=== PATIENT | male | born 1960 | race Caucasian/White ===

== ENCOUNTER 2017-05-28 23:08 | Emergency (ER) | payer OTHER ==
[~2017-05-28] VITALS: Ht 180.3 cm; Wt 101.6 kg
[2017-05-28 23:15] VITALS: TEMP 36.3; Ht 180.3 cm; Wt 101.6 kg
[2017-05-28] MEDS ORDERED: XYLOCAINE 1%/SOD BICARB 20 ML VIAL INFIL ONE (23:45)
[2017-05-29 01:13] VITALS: BP 147/96; PULSE 95; O2SAT 97
--- NOTE | 2017-05-29 02:26 | EMERGENCY ROOM VISIT NOTE ---
History Report prepared by Oswaldo: Henri Lowe Under the Supervision of: Dr. Laron Zarate M.D. First contact with patient: 23:32 Chief Complaint: LACERATION/CUT (NON-SUTURE) Stated Complaint: FELL, HIT HEAD, LACERATION- Nursing Triage Summary: Patient reports that he slipped and fell at work hitting the right side of his head. Denies LOC, notes some lightheadedness and shakiness. History of Present Illness The patient is a 56 year old male who presents to the Emergency Room with complaints of a sudden laceration that occurred prior to arrival. 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 He states that he hit his head, but is unsure what he hit his head on. The patient states that he has a mild headache and laceration from the fall. He reports that he does not know when his last tetanus shot was but thinks he is up -to-date. He admits that he had hypertension until his hip replacement and once his pain resolved his blood pressure improved. The patient denies LOC, neck pain, hip pain, back pain, abdominal pain, hypertension, numbness or weakness in his arms or legs. Source of History: patient Onset: prior to arrival Position: head Symptom Intensity: 2/10 Quality: other (laceration) Timing: other (sudden) Associated Symptoms: No LOC, No neck pain, No abdominal pain, No back pain, No weakness, No numbness Review of Systems See HPI for pertinent positives & negatives. A total of 10 systems reviewed and were otherwise negative. Past Medical & Surgical Medical Problems: (1) Alcohol Abuse-Continuous (2) Hypertension Nos Surgical Problems: (1) History of total hip arthroplasty Family History Cancer Hypertension Social History Smoking Status: Current Every Day Smoker Alcohol Use: occasionally Drug Use: none Occupation Status: employed Current/Historical Medications No Active Prescriptions or Reported Meds Allergies Coded Allergies: No Known Allergies (Verified , 05/28/17) Physical Exam Vital Signs Date Time Temp Pulse Resp B/P (MAP) Pulse Ox O2 Delivery O2 Flow Rate FiO2 05/29/17 01:13 95 18 147/96 97 05/28/17 23:15 36.3 103 18 149/100 95 Room Air Physical Exam Constitutional: Vital signs reviewed. Eyes: Pupils are equal round reactive to light. Conjunctiva are noninjected. ENT: Pharynx is clear without erythema or exudate. Mucous membranes are moist. Neck supple without meningeal signs. Respiratory: Clear to auscultation bilaterally. Breath sounds are equal bilaterally. Cardiovascular: Regular rate and rhythm. No rubs or gallops. GI: Soft, nondistended and nontender. Bowel sounds are present. Musculoskeletal: No peripheral edema. No lower extremity tenderness. No midline tenderness to cervical, thoracic, or lumbar spine. Integumentary: No cyanosis. Soft tissue swelling and 2 cm laceration to left scalp. Large skin lesion to frontal scalp. Neurological: The patient is awake and alert. No focal deficits. Psychiatric: Normal affect. Medical Decision & Procedures ER Provider Diagnostic Interpretation: CT results as stated below per my review and radiologist interpretation. CT HEAD: No priors. Scalp injury. Though history states right sided trauma, there is a left scalp hematoma noted. No ICH, mass effect, or skull fracture. Radiologist: Toi Chicas Procedure Location: Scalp Total length: 2 cm Complexity: Simple Verbal consent was obtained. A time out was taken and the correct patient and site identified. The target area was anesthetized with 3 ml of 1% lidocaine without epinephrine. Copious irrigation was performed using saline. The hair cleared from the wound, and a sterile field set. The wound was explored for foreign bodies and none found. Debridement was not performed. The wound edges were approximated using 3 surgical stephen in the standard fashion. Hemostasis and excellent approximation was achieved. No complications and the patient tolerated the procedure well. ED Course 2332: The patient was evaluated in room C09. A complete history and physical exam was performed. 2345: Ordered Lidocaine HCl 20 ml INFIL. 0048: I performed a laceration repair. See procedure notes for further detail. The patient declined a tetanus shot. He was told to follow up with his doctor regarding this. He was also told to see a stunner animal regarding the large skin lesion on his head. 0059: I reevaluated the patient refuses to wait for CT scan results. He requests that we call him if he has abnormalities. I discussed the treatment plan and he agrees. The patient was discharged home. Medical Decision This is a 56-year-old male presents status post head injury. Differential diagnosis includes concussion, contusion, skull fracture, intracranial hemorrhage, hematoma. I did perform a limited focused review of portions of the patient's old chart on the electronic medical record. The patient has had no recent pertinent visits to this hospital. I did evaluate the patient as noted above. I did order a CT of the head. I did review the images myself as well as the radiology report as described above. I did repair the patient's laceration as described above. He was given head injury precautions. He declined tetanus immunization. The patient also did not wish to wait for the radiology reading for the CAT scan and told us to call him if there was any abnormality. The patient was discharged with head injury precautions and laceration precautions. He was told to have his doctor remove the stephen in 10 days. Medication Reconcilliation Current Medication List: was personally reviewed by me Blood Pressure Screening Patient's blood pressure: Elevated blood pressure Impression Primary Impression: Acute head injury Additional Impression: Scalp laceration Scribe Attestation The scribe's documentation has been prepared under my direct and personally reviewed by me in its entirety. I confirm that the note above accurately reflects all work, treatment, procedures, and medical decision making performed by me. Departure Information Dispostion Home / Self-Care Prescriptions No Active Prescriptions or Reported Meds Referrals No Doctor, Assigned (PCP) Forms HOME CARE DOCUMENTATION FORM, IMPORTANT VISIT INFORMATION, WORK / SCHOOL INSTRUCTIONS Patient Instructions ED Head Injury Closed, ED Laceration Scalp Stitch Or Stap, My [facility] Additional Instructions You have been examined and treated today on an emergency basis only. This is not a substitute for, or an effort to provide, complete comprehensive medical care. It is impossible to recognize and treat all injuries or illnesses in a single emergency department visit. It is therefore important that you follow up closely with a regular physician. Call as soon as possible for an appointment. Return for worsening symptoms or if you develop fever, vomiting, severe headache or any other concerning symptoms. Your stephen need to be removed in 10 days. Problem Qualifiers Primary Impression: Acute head injury Encounter type: initial encounter Qualified Codes: S09.90XA - Unspecified injury of head, initial encounter Additional Impression: Scalp laceration Encounter type: initial encounter Qualified Codes: S01.01XA - Laceration without foreign body of scalp, initial encounter
--- NOTE | 2017-05-29 06:16 | DIAGNOSTIC IMAGING REPORT ---
HEAD WITHOUT CONTRAST (CT) CT DOSE: 537.48 mGy.cm HISTORY: Trauma fall eval for bleed TECHNIQUE: Multiaxial CT images of the head were performed without the use of intravenous contrast. A dose lowering technique was utilized adhering to the principles of ALARA. Comparison: None. Findings: The paranasal sinuses and mastoid air cells are clear. The calvarium and skull base are intact. The ventricles and sulci are within normal limits. There is no mass, hematoma, midline shift, or acute infarct. Impression: No acute intracranial abnormality. The above report was generated using voice recognition software. It may contain grammatical, syntax or spelling errors. Electronically signed by: Mamadou Garcia M.D. 05/29/2017 6:14 AM Dictated Date/Time: 05/29/2017 6:13 AM
== END 2017-05-29 01:14 | disposition home or self-care (01) ==
LOC: C.EDB 23:09 → C.EDC 05-29 01:14
DX: S01.01XA Laceration without foreign body of scalp, initial encounter (principal); W01.0XXA Fall on same level from slipping, tripping and stumbling without subsequent striking against object, initial encounter; I10 Essential (primary) hypertension; F17.200 Nicotine dependence, unspecified, uncomplicated; Z96.649 Presence of unspecified artificial hip joint; Z80.9 Family history of malignant neoplasm, unspecified; Z82.49 Family history of ischemic heart disease and other diseases of the circulatory system

== ENCOUNTER 2017-06-07 12:27 | Emergency (ER) | payer OTHER ==
[~2017-06-07] VITALS: Ht 180.3 cm; Wt 101.1 kg
[2017-06-07 12:36] VITALS: BP 118/78; PULSE 67; TEMP 36.8; O2SAT 95; Ht 180.3 cm; Wt 101.1 kg
--- NOTE | 2017-06-07 12:50 | EMERGENCY ROOM VISIT NOTE ---
History First contact with patient: 12:41 Chief Complaint: SUTURE/STAPLE REMOVAL Stated Complaint: REMOVAL OF STEPHEN Nursing Triage Summary: [place] in head need removed History of Present Illness The patient is a 56 year old male who presents to the Emergency Room for staple removal from a scalp laceration that was repaired in our department 10 days ago. The patient denies any wound complications or pain. Review of Systems Noncontributory Past Medical/Surgical History Medical Problems: (1) Alcohol Abuse-Continuous (2) Hypertension Nos Surgical Problems: (1) History of total hip arthroplasty Family History Cancer Hypertension Social History Smoking Status: Current Every Day Smoker Alcohol Use: occasionally Drug Use: none Occupation Status: employed Current/Historical Medications No Active Prescriptions or Reported Meds Physical Exam Vital Signs Date Time Temp Pulse Resp B/P (MAP) Pulse Ox O2 Delivery O2 Flow Rate FiO2 06/07/17 12:36 36.8 67 15 118/78 95 Room Air Physical Exam HEENT: Examination of the left parietum shows a well-healed laceration with scab formation. All stephen were removed without any wound stasis. There is no peripheral erythema, fluctuance or drainage from the wound. Medical Decision & Procedures ED Course The patient was provided additional verbal wound care instructions. Medical Decision Impression Primary Impression: Encounter for removal of stephen Additional Impression: Scalp laceration Departure Information Prescriptions No Active Prescriptions or Reported Meds Referrals No Doctor, Assigned (PCP) Patient Instructions Community [facility] Problem Qualifiers Additional Impression: Scalp laceration Encounter type: subsequent encounter Qualified Codes: S01.01XD - Laceration without foreign body of scalp, subsequent encounter
== END 2017-06-07 12:57 | disposition home or self-care (01) ==
LOC: C.EDB 12:28 → C.EDD 12:57
DX: S01.01XD Laceration without foreign body of scalp, subsequent encounter (principal); X58.XXXD Exposure to other specified factors, subsequent encounter; I10 Essential (primary) hypertension; F17.200 Nicotine dependence, unspecified, uncomplicated; Z96.649 Presence of unspecified artificial hip joint; Z82.49 Family history of ischemic heart disease and other diseases of the circulatory system